=== PATIENT | male | born 1960 | race Caucasian/White ===

== ENCOUNTER 2022-11-12 18:56 | Inpatient (IN) | payer OTHER ==
[~2022-11-12] VITALS: Ht 170.2 cm; Wt 80.0 kg
[2022-11-12] MEDS ORDERED: ONDANSETRON ODT 4 MG TAB PO ONE (22:00)
[2022-11-12] MEDS ORDERED: HYDROcodone-ACET 5/325MG TAB PO ONE (22:00)
[2022-11-12 22:04] LABS: Magnesium 2.1 mg/dL (1.6-2.6)
[2022-11-12 22:09] LABS: Albumin 3.8 g/dL (3.4-5.0); BUN/Creatinine Ratio 14.2; Calcium 9.3 mg/dL (8.5-10.1); Potassium 3.8 mmol/L (3.5-5.1)
[2022-11-12 22:12] LABS: Bilirubin, Total 0.7 mg/dL (0.2-1.0); Total Protein 7.4 g/dL (6.4-8.2)
[2022-11-12 22:14] LABS: Basophils # (auto) 0 10 ^3/uL (0-0.2); Basophils % (auto) 0.2 % (0.0-2.0); Eosinophils # (auto) 0 10 ^3/uL (0-0.8); Hematocrit 40.4 % (41.0-53.0); Hemoglobin 14.1 g/dL (13.5-17.5); Lymphocytes # (auto) 1.1 10 ^3/uL (0.4-5.4); Lymphocytes % (auto) 7.3 % (10.0-50.0); Mean Corpuscular Volume 91.4 fL (80.0-100.0); Monocytes # (auto) 0.8 10 ^3/uL (0-1.3); Monocytes % (auto) 5.4 % (0.0-12.0); Neutrophils # (auto) 13.4 10 ^3/uL (1.6-8.6); Neutrophils % (auto) 87.1 % (37.0-80.0); Nucleated Red Blood Cells % 0.1 %; Red Blood Cells 4.42 10^6/uL (4.5-5.90); White Blood Cell 15.4 10^3/uL (4.4-10.8)
[2022-11-12 22:42] LABS: Urine Blood Negative /uL (Negative); Urine Specific Gravity 1.029 (1.001-1.035)
[2022-11-12] MEDS ORDERED: PIPERACILLIN-TAZOB 3.375GM 100 ML IV ONE (23:15)
[2022-11-12] MEDS ORDERED: LACTATED RINGER'S 1,000 ML IV ONE (23:15)
[2022-11-12] MEDS ORDERED: ONDANSETRON HCL 4 MG/2 ML VIAL IV ONE (23:15)
[2022-11-12] MEDS ORDERED: MORPHINE SULFATE 4 MG/ML SYR/VIAL IV ONE (23:15)
[2022-11-13 01:20] LABS: INR 0.97 (0.9-1.15); Partial Thromboplastin Time 27.1 sec (24.6-33.4)
[2022-11-13] MEDS ORDERED: metroNIDAZOLE 500MG/100ML 100 ML IV SCH (06:45)
[2022-11-13] MEDS ORDERED: MORPHINE SULFATE INJ 2 MG/ml SYRG IV PRN ×2 (06:45→11:15)
[2022-11-13] MEDS: SODIUM CHLORIDE 0.9% 1,000 ML IV SCH ×2 (07:48→17:46)
[2022-11-13] MEDS ORDERED: fentaNYL CITRATE 100 MCG/2 ML VL ONE (08:40)
[2022-11-13] MEDS ORDERED: MIDAZOLAM HCL 2MG/2ML 2ml VIAL (1mg/ml) ONE (08:40)
[2022-11-13] MEDS ORDERED: ROCURONIUM 10MG/ML 10ML VIAL IV ONE (08:41)
[2022-11-13] MEDS ORDERED: KETOROLAC TROMETH 30 MG/ML 1ML VIAL ONE (08:41)
[2022-11-13] MEDS ORDERED: ONDANSETRON HCL 4 MG/2 ML VIAL ONE (08:41)
[2022-11-13] MEDS ORDERED: GLYCOPYRROLATE 0.2 MG/ML 1ML VIAL ONE (08:41)
[2022-11-13] MEDS ORDERED: LIDOCAINE 2% (LOCAL ANESTH.) PF 5ml SDV ONE (08:41)
[2022-11-13] MEDS ORDERED: PROPOFOL 10 MG/ML 20 ML IV ONE (08:41)
[2022-11-13] MEDS ORDERED: DexAMETHasone SOD PHOS 10MG/1ML VIAL INJ ONE (08:48)
[2022-11-13] MEDS ORDERED: cefTRIAXone 1GM/50ML D5W 50 ML IV SCH (09:00)
[2022-11-13] MEDS ORDERED: ceFAZolin 1GM/50ML 100 ML IV ONE (09:14)
[2022-11-13] MEDS ORDERED: PANTOPRAZOLE 40 MG/10 ML VIAL INJ IV SCH (10:00)
[2022-11-13] MEDS ORDERED: SUCCINYLCHOLINE CHLORIDE 20 MG/ML 10ML VIAL IV ONE (10:02)
[2022-11-13] MEDS ORDERED: FAMOTIDINE (10MG/ML) 2ML VL IV ONE (10:02)
[2022-11-13] MEDS ORDERED: HYDROmorphone HCL 2 MG/ML VL/or syr ONE (10:03)
[2022-11-13] MEDS ORDERED: ONDANSETRON HCL 4 MG/2 ML VIAL IV PRN ×2 (11:15→11:45)
[2022-11-13] MEDS: D5W/SOD CHL 0.45%/KCL 20MEQ 1,000 ML IV SCH ×2 (11:15→21:15)
[2022-11-13] MEDS ORDERED: NALOXONE HCL 1MG/ML 2ML SYRINGE ONE (11:22)
[2022-11-13] MEDS ORDERED: HYDROmorphone HCL 2 MG/ML VL/or syr IV PRN (11:45)
[2022-11-13] MEDS: ceFAZolin 2 GM in D5W 5% 100 ML IV SCH ×2 (14:00→23:00)
[2022-11-13 15:04] VITALS: BP 102/63
[2022-11-13] MEDS: metroNIDAZOLE 500MG/100ML 100 ML IV SCH ×2 (16:36→21:28)
[2022-11-13 16:57] VITALS: BP 102/63
[2022-11-13] MEDS ORDERED: TAM04C PO (17:27)
[2022-11-13] MEDS ORDERED: ALL100T PO (17:27)
[2022-11-13 22:00] VITALS: BP 98/62
[2022-11-14] MEDS: ACETAMINOPHEN/CODEINE#3 (300/30mg) TAB PO PRN ×3 (03:53→17:33)
[2022-11-14 05:00] VITALS: BP 92/57
[2022-11-14] MEDS: ceFAZolin 2 GM in D5W 5% 100 ML IV SCH ×3 (05:56→22:07)
[2022-11-14] MEDS: SODIUM CHLORIDE 0.9% 1,000 ML IV SCH ×2 (06:17→18:03)
[2022-11-14] MEDS: metroNIDAZOLE 500MG/100ML 100 ML IV SCH ×3 (06:44→21:01)
[2022-11-14 07:15] LABS: Albumin 3.1 g/dL (3.4-5.0); BUN/Creatinine Ratio 15.7; Calcium 8.5 mg/dL (8.5-10.1); Potassium 4.3 mmol/L (3.5-5.1)
[2022-11-14] MEDS: D5W/SOD CHL 0.45%/KCL 20MEQ 1,000 ML IV SCH ×3 (07:15→22:41)
[2022-11-14 07:17] LABS: Basophils # (auto) 0 10 ^3/uL (0-0.2); Basophils % (auto) 0.1 % (0.0-2.0); Eosinophils # (auto) 0 10 ^3/uL (0-0.8); Hematocrit 35.7 % (41.0-53.0); Hemoglobin 12.3 g/dL (13.5-17.5); Mean Corpuscular Hemoglobin 32.2 pg (28.0-32.0); Mean Corpuscular Hgb Conc. 34.5 g/dL (32.0-36.0); Mean Corpuscular Volume 93.3 fL (80.0-100.0); Monocytes # (auto) 1.2 10 ^3/uL (0-1.3); Neutrophils # (auto) 12.2 10 ^3/uL (1.6-8.6); Neutrophils % (auto) 84.9 % (37.0-80.0); Red Blood Cells 3.83 10^6/uL (4.5-5.90); Red Cell Distribution Width 13.4 % (11.8-14.3); White Blood Cell 14.4 10^3/uL (4.4-10.8)
[2022-11-14 07:18] LABS: Bilirubin, Total 0.5 mg/dL (0.2-1.0); Total Protein 5.9 g/dL (6.4-8.2)
[2022-11-14] MEDS: PANTOPRAZOLE 40 MG/10 ML VIAL INJ IV SCH (08:28)
[2022-11-14 09:00] VITALS: BP 96/57
[2022-11-14 13:00] VITALS: BP 107/69
[2022-11-14 17:10] VITALS: BP 109/65
[2022-11-14 22:00] VITALS: BP 121/73
[2022-11-15 05:00] VITALS: BP_SYST 117; BP_SYST 122; BP_DIAS 72; BP_DIAS 73
[2022-11-15] MEDS: ceFAZolin 2 GM in D5W 5% 100 ML IV SCH (05:06)
[2022-11-15] MEDS: SODIUM CHLORIDE 0.9% 1,000 ML IV SCH (05:42)
[2022-11-15] MEDS: metroNIDAZOLE 500MG/100ML 100 ML IV SCH (06:10)
[2022-11-15] MEDS: PANTOPRAZOLE 40 MG/10 ML VIAL INJ IV SCH (08:27)
[2022-11-15 09:00] VITALS: BP 126/78
== END 2022-11-15 11:45 | disposition left against medical advice (07) | DRG 710 ==
LOC: ER 19:01 → OVERFLOW 11-13 06:39 → EAST 11-13 15:01
PROVIDERS: ADMIT Nurse Practitioner; ATTEND Hospitalist
PROC: 0DTJ4ZZ Resection of Appendix, Percutaneous Endoscopic Approach (ICD-10-PCS; principal; 2022-11-13 10:14)
DX: A41.9 Sepsis, unspecified organism (principal); E87.1 Hypo-osmolality and hyponatremia; K35.80 Unspecified acute appendicitis; E66.9 Obesity, unspecified; Z20.822 Contact with and (suspected) exposure to COVID-19; K38.1 Appendicular concretions; Z68.27 Body mass index [BMI] 27.0-27.9, adult
CPT/HCPCS: 36415; 71045; 74176; 80053; 81003; 83690; 83735; 84484; 85025; 85610; 85730; 87426; 96374; C9113; G0378; J0330; J0690; J1100; J1885; J2001; J2250; J2405; J2543; J2704; J3490; J7060